=== PATIENT | male | born 1965 | race Caucasian/White ===

== ENCOUNTER 2019-05-31 11:00 | Emergency (ER) | payer MEDICARE ==
[~2019-05-31] VITALS: Ht 190.5 cm; Wt 170.1 kg
--- NOTE | 2019-05-31 11:45 | NUR ---
ASSUMED CARE OF PT. PT HERE WITH LEFT SIDED CHEST PAIN SINCE YESTERDAY THAT DOES RADIATE INTO BACK. WORSE WITH EXCERATION, DEEP BREATHING, AND COUGHING. DENIES RECENT TRAVEL. SKIN WARM/PINK/DRY. MILD AMOUNT OF DISTRESS WITH MODERATE DISCOMFORT NOTED. BREATHING REGULAR AND UNLABORED. IV STARTED. EMT AT BEDSIDE TO COMPLETE EKG. PT PLACED ON CONT PULSE OX, BP, AND MANAGER CONCRETE.
[2019-05-31 11:51] LABS: BASOPHILS # (AUTO) 0.08 x10^3/uL (0-0.1); BASOPHILS % (AUTO) 1 % (0-1); EOSINOPHILS # (AUTO) 0.16 x10^3/uL (0-0.4); EOSINOPHILS % (AUTO) 2 % (1-7); LYMPHOCYTES # (AUTO) 1.78 x10^3/uL (1-3.4); LYMPHOCYTES % (AUTO) 25 % (22-44); MD NO; MEAN CORPUSCULAR HEMOGLOBIN 33.9 pg (27.5-34.5); MEAN CORPUSCULAR HGB CONC 33.3 g/dL (33.2-36.2); MEAN CORPUSCULAR VOLUME 101.8 fL (81-97); MEAN PLATELET VOLUME 7.2 fL (7.4-10.4); MONOCYTES # (AUTO) 0.51 x10^3/uL (0.2-0.8); MONOCYTES % (AUTO) 7 % (2-9); NEUTROPHILS # (AUTO) 4.66 x10^3/uL (1.8-6.8); NEUTROPHILS % (AUTO) 65 % (42-75); PLATELET COUNT 266 x10^3/uL (130-400); RED BLOOD COUNT 4.38 x10^6/uL (4.38-5.82); RED CELL DISTRIBUTION WIDTH 15.4 % (9.4-14.8)
[2019-05-31 12:02] LABS: INTERNATIONAL NORMALIZED RATIO 0.95 (0.93-1.1)
[2019-05-31 12:03] LABS: ALANINE AMINOTRANSFERASE 22 U/L (12-78); ALBUMIN 3.6 g/dL (3.4-5.0); ANION GAP 6 mmol/L (5-15); CALCIUM 8.5 mg/dL (8.5-10.1); CHLORIDE 107 mmol/L (98-107); CREATININE 0.93 mg/dL (0.7-1.3)
[2019-05-31 12:07] LABS: ALKALINE PHOSPHATASE 63 U/L (45-117); BILIRUBIN,TOTAL 0.4 mg/dL (0.2-1.0); TOTAL PROTEIN 7.1 g/dL (6.4-8.2); TROPONIN I < 0.015 ng/mL (0.000-0.045)
[2019-05-31] MEDS ORDERED: HYDROmorphone 2 MG/ML, 1ML IVPush PRN (13:00)
[2019-05-31] MEDS ORDERED: HYDROmorphone 1 MG/ML, 1ML INJ ONE (13:01)
--- NOTE | 2019-05-31 13:16 | NUR ---
PT back from CT. Medicated for pain. 5 rights verified prior. 3 p's addressed.
[2019-05-31] MEDS ORDERED: OMNIPAQUE 350 MG/ML, 100ML BOTTLE ONE (13:20)
--- NOTE | 2019-05-31 14:21 | NUR ---
POC UPDATED WITH PATIENT. UP FOR RECHECK
[2019-05-31 15:03] VITALS: BP 156/96
--- NOTE | 2019-05-31 15:03 | NUR ---
PATIENT TO BE ADMITED. POC UPDATED. WILL CONTINUE TO MONITOR.
--- NOTE | 2019-05-31 15:14 | NUR ---
PT REQUESTING DIAZEPAM. STATES, "I AM A TERRIBLE PATIENT AND NEED TO BE MEDICATED AND FUCKED UP WHILE I AM HERE, OTHERWISE I WILL CONTINUE TO THREATEN TO LEAVE." ATTEMPTED TO EDUCATE PATIEN ABOUT MEDICATIONS SUCH DIAZEPAM AND THE EFFECT IT MAY CAUSE ON HIM AND HIS SYMPTOMS. EXPLAINED TO PATIENT THAT NEEDS TO DISCUSS WITH HOSPTIALIST HIS CONCERNS. PT VERBALIZED UNDERSTANDING PRIOR.
--- NOTE | 2019-05-31 15:20 | NUR ---
PT THREATING TO LEAVE. STATES HE NEEDS TO BE MEDICATED OTHERWISE HE WILL LEAVE. ATTEMPTED TO EXPLAIN TO PATIENT THAT HOSPITALIST SHOULD BE SEEING HIM SOON AND THAT HE CAN DISCUSS WITH HIM THE PLAN TO MEDICATION. PT CONTINUES TO APPEAR NOT HAPPY.
[2019-05-31] MEDS ORDERED: ASPIRIN 325 MG TABLET PO ONE (15:30)
--- NOTE | 2019-05-31 15:36 | NUR ---
PT SEEN AMBULATING OUT OF EMERGENCY ROOM. PT REMOVED IV. CATH WAS INTACT.
== END 2019-05-31 15:39 | disposition left against medical advice (07) ==
LOC: ED 12:19
DX: R07.89 Other chest pain (principal); R10.12 Left upper quadrant pain; F17.200 Nicotine dependence, unspecified, uncomplicated; F12.10 Cannabis abuse, uncomplicated; Z72.89 Other problems related to lifestyle
CPT/HCPCS: 36415; 71045; 74177; 80053; 83605; 83690; 84484; 85025; 85610; 85730; 93005; 96374; 99283; J1170; Q9967

== ENCOUNTER 2020-12-29 15:35 | Emergency (ER) | payer MEDICARE ==
[~2020-12-29] VITALS: Ht 193 cm; Wt 159.0 kg
[2020-12-29] MEDS ORDERED: KETOROLAC 30 MG/1 ML IM ONE (16:00)
[2020-12-29] MEDS ORDERED: OXYcodone/APAP 5/325MG TABLET PO ONE (16:00)
[2020-12-29] MEDS ORDERED: OXYcodone/APAP 5/325MG TABLET ONE (16:02)
[2020-12-29] MEDS ORDERED: KETOROLAC 30 MG/1 ML ONE (16:02)
--- NOTE | 2020-12-29 16:11 | NUR ---
TASK RN: PT WC'D TO ROOM 14 W/ C/O L HIP PAIN. PT DENIES ANY RECENT INJURY/TRAUMA. PT STATES THE PAIN STARTED "A WHILE AGO". PT RESTING ON GURNEY. NADN. MONITORS APPLIED. VSS. WARM BLANKET PROVIDED. CALL LIGHT IN REACH.
--- NOTE | 2020-12-29 16:27 | NUR ---
report taken from kat robledo pt to radiology at this time.
--- NOTE | 2020-12-29 16:54 | NUR ---
PT BACK FROM XRAY, SLEEPING IN BED, NADN. AWAITING XR RESULTS AND DISPO
--- NOTE | 2020-12-29 17:17 | NUR ---
RIAN GILBERT AT BEDSIDE TO DISCUSS POC WITH PATIENT
[2020-12-29] MEDS ORDERED: LIDOCAINE-MPF 1%, 5ML ONE (17:26)
[2020-12-29] MEDS ORDERED: BUPIVACAINE 0.25% ONE (17:26)
[2020-12-29] MEDS ORDERED: LIDOCAINE 1%, 10ML INFIL ONE (17:30)
[2020-12-29] MEDS ORDERED: TRIAMCINOLONE ACETONIDE 40 MG/ML, 1ML IM ONE (17:30)
[2020-12-29] MEDS ORDERED: BUPIVACAINE/PF 0.25% INFIL ONE (17:30)
--- NOTE | 2020-12-29 17:36 | NUR ---
PT C/O SEVERE PAIN IN LEFT HIP, STATES IT INHIBITS HIS ADLS. RIAN GILBERT AT BEDSIDE FOR [facility] OHYS[facility] ASSESSMENT, ORDERS RECEIVED FOR MEDICAITONS PRIOR TO DISCHARGE.
[2020-12-29 17:38] VITALS: BP 110/78
[2020-12-29] MEDS ORDERED: GABAPENTIN 300 MG CAPSULE PO ONE (18:30)
[2020-12-29] MEDS ORDERED: GABAPENTIN 300 MG CAPSULE ONE (19:00)
--- NOTE | 2020-12-29 19:01 | NUR ---
report given to Ceasar GORMAN
--- NOTE | 2020-12-29 19:12 | NUR ---
F/U AND D/C INSTRUCTIONS WITH PRESCRIPTIONS GIVEN TO PT AND HE V/U. PT TAKEN TO DISCHARGE DESK VIA WHEELCHAIR AND D/C'D WITHOUT INCIDENT.
== END 2020-12-29 19:14 | disposition home or self-care (01) ==
LOC: ED 18:56
DX: S39.012A Strain of muscle, fascia and tendon of lower back, initial encounter (principal); M79.18 Myalgia, other site; M25.552 Pain in left hip; W18.30XA Fall on same level, unspecified, initial encounter; Y93.89 Activity, other specified; Y92.009 Unspecified place in unspecified non-institutional (private) residence as the place of occurrence of the external cause; Y99.8 Other external cause status
CPT/HCPCS: 20552; 72110; 73502; 96372; 99284; J1885